=== PATIENT | male | born 1985 | race Hispanic/Latino ===

== ENCOUNTER 2018-05-19 13:44 | Emergency (ER) | payer SELFPAY ==
[~2018-05-19] VITALS: Ht 172.7 cm; Wt 75.7 kg
--- NOTE | 2018-05-19 15:16 | Diagnostic Imaging Report ---
EXAMINATION: CHEST 2 VIEWS INDICATION: SOB. COMPARISON: None FINDINGS: TUBES and LINES: None. LUNGS: Lungs are well inflated. Lungs are clear. There is no evidence of pneumonia or pulmonary edema. PLEURA: No pleural effusion or pneumothorax. HEART AND MEDIASTINUM: The cardiomediastinal silhouette is unremarkable. BONES AND SOFT TISSUES: No acute osseous abnormality. UPPER ABDOMEN: No free air under the diaphragm. IMPRESSION: No acute radiographic abnormality. Signed by: Dr. Lizzy Batista MD on 05/19/2018 3:13 PM
[2018-05-19 16:35] VITALS: BP 112/70
== END 2018-05-19 16:20 | disposition home or self-care (01) ==
LOC: ER 13:44
DX: R05 Cough (principal); J00 Acute nasopharyngitis [common cold]; J30.1 Allergic rhinitis due to pollen
CPT/HCPCS: 71046; 99283

== ENCOUNTER 2024-01-31 15:22 | Emergency (ER) | payer OTHER ==
[~2024-01-31] VITALS: Ht 172.7 cm; Wt 86.2 kg
[2024-01-31 15:30] VITALS: PULSE 94; RESP 20; TEMP 99.9; O2SAT 100
[2024-01-31 15:50] LABS: BASOPHILS # (AUTO) 0.1 (0.0-0.1); BASOPHILS % 0.5 % (0.0-1.0); EOSINOPHILS # (AUTO) 0.3 (0.0-0.4); EOSINOPHILS % 1.8 % (0.0-6.0); HEMATOCRIT 47.3 % (38.2-49.6); LYMPHOCYTES # (AUTO) 2.8 (1.0-3.2); LYMPHOCYTES % 18.4 % (18.0-39.1); MEAN CORPUSCULAR HGB CONC 33.8 g/dL (31-35); MEAN CORPUSCULAR VOLUME 85.8 fL (81-99); MONOCYTES % 6.5 % (4.4-11.3); NEUTROPHILS # (AUTO) 10.9 (2.1-6.9); NEUTROPHILS % 72.5 % (38.7-80.0); PLATELET COUNT 278 x10e3/uL (140-360); RED BLOOD COUNT 5.51 x10e6/uL (4.3-5.7); RED CELL DISTRIBUTION WIDTH 12.1 % (11.7-14.4); WHITE BLOOD COUNT 15.04 x10e3/uL (4.8-10.8)
[2024-01-31] MEDS: ONDANSETRON HCL INJ 2MG/ML 2ML 2 MG/ML VIAL IV STA (15:58)
[2024-01-31] MEDS: SODIUM CHLORIDE 0.9% 1000ML 1,000 ML IV STA (15:58)
[2024-01-31] MEDS: KETOROLAC TROMETHAMINE 30 MG/ML VIAL IV STA (15:59)
[2024-01-31 16:06] LABS: ALBUMIN 4.2 g/dL (3.5-5.0); ALBUMIN/GLOBULIN RATIO 1.2 (0.8-2.0); ANION GAP 13.9 mmol/L (8-16); BILIRUBIN,TOTAL 0.5 mg/dL (0.2-1.2); CALCIUM 9.6 mg/dL (8.4-10.2); CREATININE, SERUM 1.52 mg/dL (0.72-1.25); POTASSIUM 3.9 mmol/L (3.5-5.1); TOTAL PROTEIN 7.6 g/dL (6.5-8.1)
[2024-01-31 17:41] LABS: BILIRUBIN,URINE NEGATIVE (NEGATIVE); CLARITY,URINE CLEAR (CLEAR); COLOR,URINE YELLOW (YELLOW); GLUCOSE, URINE NEGATIVE (NEGATIVE); KETONES,URINE NEGATIVE (NEGATIVE); LEUKOCYTE ESTERASE ,URINE NEGATIVE (NEGATIVE); NITRITE,URINE NEGATIVE (NEGATIVE); PH,URINE 7.5 (5 - 7); PROTEIN,URINE DIPSTICK NEGATIVE (NEGATIVE); URINE UROBILINOGEN 0.2 mg/dL (0.2 - 1)
[2024-01-31 17:48] LABS: BACTERIA,URINE FEW /HPF; RBC,URINE >50 /HPF (0-5); WBC,URINE (MAN) 0-5 /HPF (0-5)
[2024-01-31 17:49] LABS: EPITHELIAL CELLS,URINE RARE /LPF
== END 2024-01-31 18:47 | disposition home or self-care (01) ==
LOC: ER 15:49
DX: R50.9 Fever, unspecified (principal); N20.0 Calculus of kidney; R10.32 Left lower quadrant pain; I10 Essential (primary) hypertension; J45.909 Unspecified asthma, uncomplicated
CPT/HCPCS: 36415; 74176; 80053; 81001; 85025; 99284; J1885; J2405; J7030